=== PATIENT | male | born 1960 | race African-American/Black ===

== ENCOUNTER 2017-07-31 12:02 | Emergency (ER) | payer SELFPAY ==
[~2017-07-31] VITALS: Ht 182.9 cm; Wt 136.1 kg
[2017-07-31 13:12] LABS: Basophils # (auto) 0 uL; Basophils % (auto) 0.5 % (0.0-2.0); Eosinophils # (auto) 0.1 uL; Eosinophils % (auto) 0.8 % (0.0-7.0); Hematocrit 42.9 % (41.0-53.0); Lymphocytes # (auto) 2.3 uL; Lymphocytes % (auto) 30.5 % (10.0-50.0); Mean Corpuscular Hemoglobin 27.1 pg (28.0-32.0); Mean Corpuscular Hgb Conc. 32.7 g/dL (32.0-36.0); Mean Corpuscular Volume 82.6 fL (80.0-100.0); Mean Platelet Volume 8.7 fL (6.9-10.8); Monocytes # (auto) 0.5 uL; Monocytes % (auto) 6.7 % (0.0-12.0); Neutrophils # (auto) 4.7 uL; Neutrophils % (auto) 61.5 % (37.0-80.0); Nucleated Red Blood Cells % 0.1 %; Platelet Count (auto) 276 10^3/uL (140-450); Red Cell Distribution Width 15.2 % (11.8-14.3); White Blood Cell 7.7 10^3/uL (4.4-10.8)
[2017-07-31 13:38] LABS: Albumin 3.7 g/dL (3.4-5.0); B-Type Natriuretic Peptide 20.53 pg/mL (0-100); Bilirubin, Total 0.4 mg/dL (0.2-1.0); Potassium 3.6 mmol/L (3.5-5.1); Temperature: 23.5 C (20.0-25.0); Total Protein 8.5 g/dL (6.4-8.2)
[2017-07-31] MEDS ORDERED: cloNIDine HCL 0.1 MG TAB ONE (14:25)
[2017-07-31 14:35] VITALS: BP 171/76
[2017-07-31] MEDS ORDERED: cloNIDine HCL 0.1 MG TAB PO ONE (14:45)
== END 2017-07-31 15:08 | disposition short-term general hospital (02) ==
LOC: ER 12:02
DX: I10 Essential (primary) hypertension (principal); F17.210 Nicotine dependence, cigarettes, uncomplicated; R74.8 Abnormal levels of other serum enzymes; I62.00 Nontraumatic subdural hemorrhage, unspecified; R42 Dizziness and giddiness
CPT/HCPCS: 36415; 70450; 71020; 80053; 83880; 84484; 85025; 93005; 99291; J7030

== ENCOUNTER 2018-03-30 13:28 | Inpatient (IN) | payer SELFPAY ==
[~2018-03-30] VITALS: Ht 175.3 cm; Wt 128.0 kg
[2018-03-30 14:39] LABS: Basophils # (auto) 0 uL; Basophils % (auto) 0.4 % (0.0-2.0); Eosinophils # (auto) 0 uL; Eosinophils % (auto) 0.4 % (0.0-7.0); Hemoglobin 14.5 g/dL (13.5-17.5); Lymphocytes # (auto) 1.4 uL; Lymphocytes % (auto) 21.4 % (10.0-50.0); Mean Corpuscular Hemoglobin 26.8 pg (28.0-32.0); Mean Corpuscular Volume 81.2 fL (80.0-100.0); Monocytes # (auto) 0.4 uL; Monocytes % (auto) 6.5 % (0.0-12.0); Neutrophils # (auto) 4.6 uL; Neutrophils % (auto) 71.3 % (37.0-80.0); Platelet Count (auto) 248 10^3/uL (140-450); Red Blood Cells 5.42 10^6/uL (4.5-5.90); Red Cell Distribution Width 15.1 % (11.8-14.3); White Blood Cell 6.5 10^3/uL (4.4-10.8)
[2018-03-30 14:55] LABS: Albumin 3.8 g/dL (3.4-5.0); BUN/Creatinine Ratio 13.6; Bilirubin, Total 0.8 mg/dL (0.2-1.0); Magnesium 2.3 mg/dL (1.6-2.6); Potassium 3.9 mmol/L (3.5-5.1); Total Protein 8.4 g/dL (6.4-8.2)
[2018-03-30] MEDS ORDERED: PANTOPRAZOLE 40 MG/10 ML VIAL IV STA (15:24)
[2018-03-30] MEDS ORDERED: MORPHINE SULFATE 4 MG/ML SYR/VIAL IV ONE (15:30)
[2018-03-30] MEDS ORDERED: ONDANSETRON HCL 4 MG/2 ML VIAL IV ONE (15:30)
[2018-03-30 16:00] LABS: Amylase 39 U/L (25-115); Lipase 218 U/L (73-393)
[2018-03-30] MEDS ORDERED: MORPHINE SULFATE INJECTION 1 ML ONE (16:00)
[2018-03-30 16:14] LABS: INR 0.91 (0.9-1.15); Partial Thromboplastin Time 28.5 sec (23.78-33.04); Prothrombin Time 9.8 sec (9.27-12.13)
[2018-03-30] MEDS ORDERED: ALUM & MAG HYDROX-SIMETH LIQ(MAALOX) 30 ML PO ONE (17:45)
[2018-03-30] MEDS ORDERED: NITROGLYCERIN 0.4 MG SL TAB SL PRN ×2 (17:45)
[2018-03-30] MEDS ORDERED: ONDANSETRON HCL 4 MG/2 ML VIAL IV PRN (17:45)
[2018-03-30] MEDS ORDERED: ACETAMINOPHEN 325 MG TAB PO PRN (17:45)
[2018-03-30] MEDS ORDERED: MORPHINE SULFATE 8mg/ml INJ SDV IV PRN ×2 (17:45)
[2018-03-30] MEDS ORDERED: ZOLPIDEM TARTRATE 5 MG TAB PO PRN (17:45)
[2018-03-30] MEDS ORDERED: LORazepam 0.5 MG TAB PO PRN (17:45)
[2018-03-30] MEDS ORDERED: LOSARTAN POTASSIUM 50 MG TAB PO SCH (17:47)
[2018-03-30] MEDS ORDERED: HCTZ 25 MG TAB PO ONE (18:00)
[2018-03-30] MEDS: ASPirin 81 mg TAB PO SCH (18:31)
[2018-03-30] MEDS: hydrALAZINE HCL 25 MG TAB PO SCH (18:31)
[2018-03-30] MEDS: DOCUSATE SOD 100 MG CAP PO SCH (18:31)
[2018-03-30 20:33] LABS: Urine Bacteria NONE SEEN /hpf (None Seen); Urine Blood Negative /uL (Negative); Urine WBC <1 /hpf (0 - 3)
[2018-03-30] MEDS: ATORVASTATIN 20 MG TAB PO SCH (21:39)
[2018-03-30] MEDS: CARVEDILOL 3.125 MG TAB PO SCH (21:40)
[2018-03-30 21:42] VITALS: BP 108/63
[2018-03-31] VITALS (7 sets, daily range): BP systolic 94–126; BP diastolic 58–72
[2018-03-31] MEDS: SODIUM CHLOR 0.9% PF (SALINE LOCK) 10ML VIAL/SYR IV SCH ×4 (00:16→22:30)
[2018-03-31] MEDS: hydrALAZINE HCL 25 MG TAB PO SCH ×4 (00:17→17:40)
[2018-03-31 07:06] LABS: Basophils # (auto) 0 uL; Eosinophils # (auto) 0.1 uL; Hemoglobin 13.6 g/dL (13.5-17.5); Lymphocytes # (auto) 1.8 uL; Monocytes # (auto) 0.5 uL; Nucleated Red Blood Cells % 0.1 %; White Blood Cell 6.2 10^3/uL (4.4-10.8)
[2018-03-31 07:09] LABS: Basophils % (auto) 0.3 % (0.0-2.0); Eosinophils % (auto) 1.1 % (0.0-7.0); Hematocrit 41.1 % (41.0-53.0); Lymphocytes % (auto) 28.1 % (10.0-50.0); Mean Corpuscular Hemoglobin 27.1 pg (28.0-32.0); Mean Corpuscular Hgb Conc. 33.1 g/dL (32.0-36.0); Monocytes % (auto) 8.5 % (0.0-12.0); Neutrophils # (auto) 3.9 uL; Platelet Count (auto) 215 10^3/uL (140-450); Red Blood Cells 5.01 10^6/uL (4.5-5.90)
[2018-03-31 07:53] LABS: Albumin 3.4 g/dL (3.4-5.0); BUN/Creatinine Ratio 11.3; Bilirubin, Total 0.8 mg/dL (0.2-1.0); Calcium 8.5 mg/dL (8.5-10.1); Magnesium 2.5 mg/dL (1.6-2.6); Potassium 3.6 mmol/L (3.5-5.1); Total Protein 7.2 g/dL (6.4-8.2)
[2018-03-31] MEDS: ASPirin 81 mg TAB PO SCH (09:35)
[2018-03-31] MEDS: DOCUSATE SOD 100 MG CAP PO SCH (09:35)
[2018-03-31] MEDS: CLOPIDOGREL BISULFATE 75 MG TAB PO SCH (09:35)
[2018-03-31] MEDS: CARVEDILOL 3.125 MG TAB PO SCH ×2 (09:36→22:31)
[2018-03-31] MEDS ORDERED: HCTZ 25 MG TAB PO SCH (10:00)
[2018-03-31] MEDS: SODIUM CHLORIDE 0.9% 1,000 ML IV SCH (16:38)
[2018-03-31] MEDS: ATORVASTATIN 20 MG TAB PO SCH (22:31)
[2018-04-01] MEDS: SODIUM CHLORIDE 0.9% 1,000 ML IV SCH (01:50)
[2018-04-01 05:00] VITALS: BP 116/69
[2018-04-01] MEDS: hydrALAZINE HCL 25 MG TAB PO SCH ×3 (06:00→14:43)
[2018-04-01] MEDS: SODIUM CHLOR 0.9% PF (SALINE LOCK) 10ML VIAL/SYR IV SCH ×2 (06:08→14:43)
[2018-04-01 06:47] LABS: Basophils # (auto) 0 uL; Eosinophils # (auto) 0.1 uL; Lymphocytes # (auto) 2.2 uL; Monocytes # (auto) 0.5 uL; Neutrophils # (auto) 3.2 uL
[2018-04-01 06:49] LABS: Basophils % (auto) 0.2 % (0.0-2.0); Eosinophils % (auto) 1.3 % (0.0-7.0); Hematocrit 39.9 % (41.0-53.0); Hemoglobin 13.1 g/dL (13.5-17.5); Lymphocytes % (auto) 36.6 % (10.0-50.0); Mean Corpuscular Hgb Conc. 32.9 g/dL (32.0-36.0); Monocytes % (auto) 8.3 % (0.0-12.0); Neutrophils % (auto) 53.6 % (37.0-80.0); Platelet Count (auto) 227 10^3/uL (140-450); Red Blood Cells 4.86 10^6/uL (4.5-5.90); Red Cell Distribution Width 14.7 % (11.8-14.3)
[2018-04-01 07:01] LABS: BUN/Creatinine Ratio 15.3; Calcium 8.5 mg/dL (8.5-10.1); Potassium 3.4 mmol/L (3.5-5.1)
[2018-04-01 08:00] VITALS: BP 116/69
[2018-04-01] MEDS ORDERED: ADENOSINE 108 MG in GIVE UN-DILUTED 0 ML IV STA (08:43)
[2018-04-01 09:00] VITALS: BP 143/77
[2018-04-01 12:39] VITALS: BP 147/71
[2018-04-01 13:00] VITALS: BP 163/93
[2018-04-01] MEDS: ASPirin 81 mg TAB PO SCH (14:35)
[2018-04-01] MEDS: DOCUSATE SOD 100 MG CAP PO SCH (14:35)
[2018-04-01] MEDS: CLOPIDOGREL BISULFATE 75 MG TAB PO SCH (14:36)
[2018-04-01] MEDS: CARVEDILOL 3.125 MG TAB PO SCH (14:36)
[2018-04-01] MEDS ORDERED: LOSA100T27 PO (14:47)
[2018-04-01] MEDS ORDERED: HYDR25TA35 PO ×2 (14:47→15:16)
[2018-04-01] MEDS ORDERED: ATOR20TA50 PO ×2 (14:47→15:16)
[2018-04-01 15:47] VITALS: BP 163/69
== END 2018-04-01 16:20 | disposition home or self-care (01) | DRG 280 ==
LOC: ER 13:28 → TELE 13:29 → TELE-EAST 20:45
PROVIDERS: ADMIT Internal Medicine; ATTEND Internal Medicine
DX: I21.4 Non-ST elevation (NSTEMI) myocardial infarction (principal); N17.0 Acute kidney failure with tubular necrosis; R65.10 Systemic inflammatory response syndrome (SIRS) of non-infectious origin without acute organ dysfunction; E87.1 Hypo-osmolality and hyponatremia; Z68.41 Body mass index [BMI] 40.0-44.9, adult; E66.01 Morbid (severe) obesity due to excess calories; R16.0 Hepatomegaly, not elsewhere classified; E78.5 Hyperlipidemia, unspecified; I12.9 Hypertensive chronic kidney disease with stage 1 through stage 4 chronic kidney disease, or unspecified chronic kidney disease; F17.210 Nicotine dependence, cigarettes, uncomplicated; K76.0 Fatty (change of) liver, not elsewhere classified; N18.2 Chronic kidney disease, stage 2 (mild); M10.9 Gout, unspecified; Z88.0 Allergy status to penicillin; Z87.442 Personal history of urinary calculi
CPT/HCPCS: 36415; 70450; 71046; 76705; 78452; 80048; 80053; 80061; 81001; 82150; 83690; 83735; 83880; 84443; 84484; 85025; 85610; 85730; 93005; 93017; 93306; 93886; 94761; 96361; 96374; 96375; C9113; J0153; J2270; J2405